=== PATIENT | female | born 1975 | race Caucasian/White ===

== ENCOUNTER → 2019-01-12 | Outpatient (CLI) | payer OTHER ==
--- NOTE | 2019-01-12 21:01 | US ---
EXAM DESCRIPTION: Breast,Bilateral: Ultrasound CLINICAL HISTORY: 43 yearsFemaleUnspecified lump retroareolar mass left breast. Small for 6 years then rapid growth in the past 2 months. Tender around the left nipple. Focal asymmetry right breast. COMPARISON: Bilateral diagnostic digital breast tomosynthesis examination today. TECHNIQUE: Transcutaneous scanning of the bilateral breasts utilizing flores-scale and Doppler modes. Scanning performed by the derrick follower and Dr. Null. FINDINGS: Scanning of the right breast at the 800-1000 clock position from the nipple to 6 cm posterior to the nipple. Mostly fatty echotexture with minimal fibroglandular elements. No dominant solid mass or distinct cyst. No parenchymal edema or large calcifications. No overlying skin changes. Normal vascularity. Scanning of the retroareolar left breast. Relatively uniform hypoechoic mass with circumscribed margins 2.2 x 2.1 x 1.8 cm. And shadowing with predominantly posterior acoustic enhancement. Nonvascular. No fluid or cystic component. More likely to represent fibroadenoma then lymph node. Discoloration of the nipple is noted. No large calcifications or parenchymal edema. IMPRESSION: 1. Bi-Rads Category 3: Probably Benign Findings. 2. Please refer to bilateral diagnostic digital breast tomosynthesis examination and report today. The FINDINGS and the FOLLOW-UP plan were reviewed in person with the patient after the examination. Written communication explaining the IMPRESSION and FOLLOW-UP will be mailed to the patient and referring care provider. Electronically signed by: Noé Null MD 01/12/2019 8:58 PM STYLIST ASSISTANT
--- NOTE | 2019-01-13 16:43 | MAM ---
EXAM DESCRIPTION: 3D Diagnostic, Bilateral: Digital Mammography CLINICAL HISTORY: 43 yearsFemaleUnspecified lump palpable mass around the left nipple. Pea-sized for 6 years with enlargement in the past 2 months. Nipple discoloration. No discharge. No personal or family history of breast cancer. Childbirth. Premenopausal. No HRT. Lifetime risk of developing breast cancer (Tyrer-Cuzick model) percentage is 10.8. COMPARISON: Baseline study at this facility. Targeted bilateral breast ultrasound included with this examination.. TECHNIQUE: Bilateral LM, CC, and MLO projection full-field images, digital mammographic tomosynthesis technique. Bilateral 2-D digital full-field MLO images. CAD not utilized. FINDINGS: The breast parenchymal density pattern is: Scattered areas of fibroglandular density. No skin thickening or nipple retraction. Left nipple is swollen, and darker in color compared to the right nipple. . Circumscribed mass posterior and slightly inferior to the left nipple with dimensions approximately 2.1 x 1.0 x 2.4 cm. No definite calcifications. Skin marker abutting the mass. Focal asymmetry in the 9:00-10:00 position of the right breast middle third approximately 6 cm from the nipple. Small microcalcifications bilaterally. Ultrasound: Scanning of the right breast at the 800-1000 clock position from the nipple to 6 cm posterior to the nipple. Mostly fatty echotexture with minimal fibroglandular elements. No dominant solid mass or distinct cyst. No parenchymal edema or large calcifications. No overlying skin changes. Normal vascularity. Scanning of the retroareolar left breast. Relatively uniform hypoechoic mass with circumscribed margins 2.2 x 2.1 x 1.8 cm. And shadowing with predominantly posterior acoustic enhancement. Nonvascular. No fluid or cystic component. More likely to represent fibroadenoma then lymph node. Discoloration of the nipple is noted. No large calcifications or parenchymal edema. IMPRESSION: BI-RADS CATEGORY: 3 - PROBABLY BENIGN. Management: Short interval (6-month) follow-up diagnostic digital left breast mammography and continued surveillance targeted left breast ultrasound. The FINDINGS and the FOLLOW-UP plan were reviewed in person with the patient after the examination. Written communication explaining the IMPRESSION and FOLLOW-UP will be mailed to the patient and referring care provider. Electronically signed by: Noé Null MD 01/13/2019 4:39 PM LEGAL OFFICER
== END ==
LOC: MAMMO 08:33
PROVIDERS: ATTEND Physician Assistant
DX: N63.20 Unspecified lump in the left breast, unspecified quadrant (principal); N63.10 Unspecified lump in the right breast, unspecified quadrant
CPT/HCPCS: 76641; 77066; G0279

== ENCOUNTER → 2019-01-26 | Outpatient (CLI) | payer OTHER | LOC: LAB.O 16:02 | PROVIDERS: ATTEND Surgery | DX: N61.1 Abscess of the breast and nipple (principal) ==

== ENCOUNTER → 2019-01-28 | Day surgery (SDC) | payer OTHER ==
[~2019-01-28] MED LIST: DEXAMETHASONE INJ 10 MG/ML VIAL ONE; HYDROcodone 5MG/APAP 325MG 1 EA TAB ONE; HYDROcodone 5MG/APAP 325MG 1 EA TAB PO ONE; IODOFORM PACKING 1/2 INCH 1 EA BTTL TOP ONE; LACTATED RINGERS 1,000 ML IVS ONE; LIDOCAINE 1% 10 ML VIAL INJ ONE; LIDOCAINE 1% 50 ML VIAL INJ ONE; METOCLOPRAMIDE HCL INJ 10 MG/2 ML VIAL ONE; MIDAZOLAM INJ 2 MG/2 ML VIAL ONE; PROPOFOL 200 MG/20 ML VIAL IV ONE; ROCURONIUM BROMIDE 10 MG/ML VIAL ONE; SUGAMMADEX SODIUM 200 MG/2 ML VIAL IV ONE; fentaNYL CITRATE INJ 50 MCG/ML AMP ONE; raNITIdine HCL INJ 25 MG/ML VIAL ONE
--- NOTE | 2019-01-28 13:39 | OP ---
DATE OF PROCEDURE: 01/28/19 PREOPERATIVE DIAGNOSIS: 1. Left breast abscess. POSTOPERATIVE DIAGNOSIS: 1. Left breast abscess. PROCEDURE: 1. Incision and drainage of left breast abscess via mastotomy. SURGEON: Faustino Guy MD. ROCK ROOM WORKER: None. ANESTHESIA: Local infiltration of 1% lidocaine and general endotracheal anesthesia. INDICATION: The patient is a 43-year-old female who has had a mass in her left breast for approximately 6 years. It has recently grown and in the very recent past become quite painful. She presented to my office on Saturday for an abnormal mammogram, but was so exquisitely tender, I could barely examine her. At that point, I aspirated purulent drainage. There has been no further drainage. I saw her this morning after having her stayed NPO and noted she is still quite fluctuant, erythematous and tender, so she was brought to the Surgical Suite this afternoon for incision and drainage of the breast abscess. FINDINGS: There was a simple abscess that was quite large in the subareolar space. The drainage was foul-smelling and quite thick, consistent with an infected inclusion cyst. No biopsies were taken. PROCEDURE: After general endotracheal anesthesia was obtained, the patient was placed in the supine position, prepped and draped in the usual sterile manner. Surgical time-out was taken. When this was done, local infiltration of anesthesia was obtained in the inferior aspect of the areola. A curvilinear incision was fashioned approximately 0.5 cm from the nipple over the fluctuant area. Dissection was carried down through the skin using a sharp knife until purulent drainage was obtained. At this point, the incision was further opened with a hemostat and suctioned out. It was then irrigated copiously with saline. The effluent was noted to be clear. It was explored with hemostat and no loculations were identified. There was minimal drainage. At this point, it was packed half-inch iodoform Nu-Gauze. Sterile fluff dressing was applied. The patient was awakened and taken to the Recovery Room in stable condition. Estimated blood loss was less than 25 mL. All sponge, needle and instrument counts were correct. No culture was taken due to the fact that the patient had a culture from Saturday that is still pending. #[id number] [facility]
[2019-01-28 15:13] VITALS: BP 134/76; TEMP 97.1; O2SAT 98
== END ==
LOC: AMB 12:11
PROVIDERS: ATTEND Surgery
DX: N61.1 Abscess of the breast and nipple (principal); K21.9 Gastro-esophageal reflux disease without esophagitis; E66.9 Obesity, unspecified; F17.200 Nicotine dependence, unspecified, uncomplicated; Z79.899 Other long term (current) drug therapy
CPT/HCPCS: 00300; 10060; 36415; 80048; 81001; 81025; 85025; J1100; J2250; J2765; J2780; J3010; J3490; J7120

== ENCOUNTER → 2019-02-24 | Outpatient (CLI) | payer OTHER | LOC: LAB.O 16:33 | PROVIDERS: ATTEND Surgery | DX: N61.1 Abscess of the breast and nipple (principal) ==

== ENCOUNTER → 2019-07-15 | Outpatient (CLI) | payer OTHER ==
--- NOTE | 2019-07-16 11:45 | US ---
EXAM DESCRIPTION: Diagnostic Mammo,Left (accession [id number]), Breast,Left (accession [id number]): Ultrasound CLINICAL HISTORY: 43 yearsFemaleFOLLOW UP N61.1 left breast retroareolar cyst removal in the interval since prior study. No complaints. Six-month follow-up. COMPARISON: Bilateral diagnostic digital breast tomosynthesis and bilateral targeted breast ultrasound to 06/04/2019. TECHNIQUE: Left breast LM, CC, and MLO projection full-field images, digital mammographic tomosynthesis technique. Left breast 2-D digital full-field images. LM, CC, and MLO projections. CAD not utilized. . Transcutaneous scanning of the left breast utilizing flores-scale and Doppler modes. Scanning performed by the worldwide chief creative officer and Dr. Null. FINDINGS: The breast parenchymal density pattern is: Scattered areas of fibroglandular density. No skin thickening or nipple retraction the left breast retroareolar mass is no longer visualized. Possible nodular density inferior and posterior to the nipple. No new focal asymmetry and no suspicious microcalcifications left breast. Ultrasound: At the 6:00 position of the retroareolar left breast is a hypoechoic circumscribed nodule measuring 3.8 mm in all axes, spherical shaped. No posterior acoustic signature. Nonvascular. No large calcifications or parenchymal edema. Most likely lymph node, or residual scar after cyst aspiration.. IMPRESSION: BI-RADS CATEGORY: 3 - PROBABLY BENIGN. Management: Short interval (6-month) diagnostic left breast digital tomosynthesis and targeted ultrasound. Schedule with routine follow-up right breast after one year anniversary date, 01/12/2019.. The FINDINGS and the FOLLOW-UP plan were reviewed in person with the patient after the examination. Written communication explaining the IMPRESSION and FOLLOW-UP will be mailed to the patient and referring care provider. Electronically signed by: Noé Null MD 07/16/2019 11:44 AM CDT
== END ==
LOC: MAMMO 09:56
PROVIDERS: ATTEND Surgery
DX: N61.1 Abscess of the breast and nipple (principal); Z09 Encounter for follow-up examination after completed treatment for conditions other than malignant neoplasm

== ENCOUNTER → 2019-10-20 | Outpatient (CLI) | payer OTHER | LOC: LAB.O 10:29 | PROVIDERS: ATTEND Obstetrics & Gynecology | DX: Z01.419 Encounter for gynecological examination (general) (routine) without abnormal findings (principal) ==